=== PATIENT | female | born 1960 | race Caucasian/White ===

== ENCOUNTER → 2016-09-11 | Outpatient (CLI) | payer BC ==
[2016-09-11 10:25] LABS: BASO % 1 % (0-3); EOS % 1 % (0-3); HEMATOCRIT 38.9 % (36.0-47.0); HEMOGLOBIN 13.3 g/dL (12.0-15.5); LYMPH # 0.9 x10^3/uL (1.0-4.8); LYMPH % 25 % (24-48); MEAN CORPUSCULAR HEMOGLOBIN 36 pg (25-35); MEAN CORPUSCULAR HGB CONC 34 g/dL (31-37); MEAN CORPUSCULAR VOLUME 104 fL (79-100); MONO # 0.3 x10^3/uL (0.0-1.1); MONO % 8 % (0-9); NEUT # 2.4 x10^3uL (1.8-7.7); NEUT % 65 % (31-73); PLATELET COUNT 303 x10^3/uL (140-400); RED BLOOD COUNT 3.76 x10^6/uL (3.50-5.40); RED CELL DISTRIBUTION WIDTH 13.8 % (11.5-14.5); WHITE BLOOD COUNT 3.7 x10^3/uL (4.0-11.0)
[2016-09-11 10:38] LABS: ALBUMIN 3.5 g/dL (3.4-5.0); ALBUMIN/GLOBULIN RATIO 0.8 (1.0-1.7); CALCIUM 8.8 mg/dL (8.5-10.1); CREATININE 0.9 mg/dL (0.6-1.0); GFR 64.5; POTASSIUM 4.3 mmol/L (3.5-5.1); TOTAL BILIRUBIN 0.7 mg/dL (0.2-1.0); TOTAL PROTEIN 7.7 g/dL (6.4-8.2)
== END | disposition home or self-care (01) ==
LOC: LAB 08:00
PROVIDERS: ATTEND Internal Medicine Gastroenterology
DX: R19.7 Diarrhea, unspecified (principal); Z79.899 Other long term (current) drug therapy
CPT/HCPCS: 36415; 80053; 85027

== ENCOUNTER → 2017-05-05 | Outpatient (CLI) | payer BC ==
[2017-05-05 11:52] LABS: BASO % 1 % (0-3); EOS # 0.1 x10^3/uL (0.0-0.7); EOS % 2 % (0-3); HEMATOCRIT 43.6 % (36.0-47.0); LYMPH % 30 % (24-48); MEAN CORPUSCULAR HEMOGLOBIN 35 pg (25-35); MEAN CORPUSCULAR HGB CONC 34 g/dL (31-37); MEAN CORPUSCULAR VOLUME 102 fL (79-100); MONO # 0.6 x10^3/uL (0.0-1.1); MONO % 9 % (0-9); NEUT # 3.9 x10^3uL (1.8-7.7); NEUT % 59 % (31-73); PLATELET COUNT 300 x10^3/uL (140-400); RED BLOOD COUNT 4.28 x10^6/uL (3.50-5.40); RED CELL DISTRIBUTION WIDTH 14.4 % (11.5-14.5); WHITE BLOOD COUNT 6.7 x10^3/uL (4.0-11.0)
[2017-05-05 12:16] LABS: ALBUMIN 3.7 g/dL (3.4-5.0); ALBUMIN/GLOBULIN RATIO 0.8 (1.0-1.7); CALCIUM 9.5 mg/dL (8.5-10.1); CREATININE 0.9 mg/dL (0.6-1.0); GFR 64.3; POTASSIUM 4.3 mmol/L (3.5-5.1); TOTAL BILIRUBIN 0.4 mg/dL (0.2-1.0); TOTAL PROTEIN 8.1 g/dL (6.4-8.2)
== END | disposition home or self-care (01) ==
LOC: LAB 11:17
PROVIDERS: ATTEND Internal Medicine Gastroenterology
DX: Z51.81 Encounter for therapeutic drug level monitoring (principal); Z79.899 Other long term (current) drug therapy
CPT/HCPCS: 36415; 80053; 85025

== ENCOUNTER → 2017-07-14 | Outpatient (CLI) | payer BC ==
--- NOTE | 2017-07-14 16:30 | RAD ---
Chest, 2 views, 07/14/2017: History: Cough The heart size and pulmonary vascularity are normal. There are several artifacts on the surface of the patient. No acute infiltrate is seen. There is no evidence of pleural fluid. Mild spurring is present in the spine. IMPRESSION: No acute cardiopulmonary abnormality is detected.
== END | disposition home or self-care (01) ==
LOC: DXRAD 15:24
PROVIDERS: ATTEND Family Medicine
DX: J06.9 Acute upper respiratory infection, unspecified (principal); M46.00 Spinal enthesopathy, site unspecified; R05 Cough
CPT/HCPCS: 71046

== ENCOUNTER → 2017-09-01 | Outpatient (CLI) | payer BC ==
[2017-09-01 10:57] LABS: BASO % 1 % (0-3); EOS % 1 % (0-3); HEMATOCRIT 39.8 % (36.0-47.0); HEMOGLOBIN 13.8 g/dL (12.0-15.5); LYMPH # 0.9 x10^3/uL (1.0-4.8); LYMPH % 19 % (24-48); MEAN CORPUSCULAR HEMOGLOBIN 35 pg (25-35); MEAN CORPUSCULAR HGB CONC 35 g/dL (31-37); MEAN CORPUSCULAR VOLUME 102 fL (79-100); MONO # 0.4 x10^3/uL (0.0-1.1); MONO % 8 % (0-9); NEUT # 3.4 x10^3uL (1.8-7.7); NEUT % 72 % (31-73); PLATELET COUNT 358 x10^3/uL (140-400); RED BLOOD COUNT 3.92 x10^6/uL (3.50-5.40); RED CELL DISTRIBUTION WIDTH 15.4 % (11.5-14.5); WHITE BLOOD COUNT 4.7 x10^3/uL (4.0-11.0)
[2017-09-01 13:21] LABS: ALBUMIN 3.6 g/dL (3.4-5.0); ALBUMIN/GLOBULIN RATIO 0.8 (1.0-1.7); CALCIUM 9.6 mg/dL (8.5-10.1); CREATININE 0.8 mg/dL (0.6-1.0); GFR 73.7; POTASSIUM 4.7 mmol/L (3.5-5.1); TOTAL BILIRUBIN 0.5 mg/dL (0.2-1.0); TOTAL PROTEIN 8.1 g/dL (6.4-8.2)
== END | disposition home or self-care (01) ==
LOC: LAB 10:39
PROVIDERS: ATTEND Internal Medicine Gastroenterology
DX: Z79.899 Other long term (current) drug therapy (principal)
CPT/HCPCS: 36415; 80053; 85025

== ENCOUNTER → 2017-10-29 | Outpatient (CLI) | payer BC ==
[2017-10-29 10:18] LABS: BASO % 1 % (0-3); EOS % 1 % (0-3); HEMATOCRIT 39.4 % (36.0-47.0); HEMOGLOBIN 13.8 g/dL (12.0-15.5); LYMPH % 25 % (24-48); MEAN CORPUSCULAR HEMOGLOBIN 36 pg (25-35); MEAN CORPUSCULAR HGB CONC 35 g/dL (31-37); MEAN CORPUSCULAR VOLUME 102 fL (79-100); MONO # 0.4 x10^3/uL (0.0-1.1); MONO % 10 % (0-9); NEUT # 2.6 x10^3uL (1.8-7.7); NEUT % 63 % (31-73); PLATELET COUNT 313 x10^3/uL (140-400); RED BLOOD COUNT 3.88 x10^6/uL (3.50-5.40); RED CELL DISTRIBUTION WIDTH 14.5 % (11.5-14.5); WHITE BLOOD COUNT 4.1 x10^3/uL (4.0-11.0)
[2017-10-29 10:30] LABS: ALBUMIN 3.4 g/dL (3.4-5.0); ALBUMIN/GLOBULIN RATIO 0.8 (1.0-1.7); CALCIUM 9.2 mg/dL (8.5-10.1); CREATININE 0.9 mg/dL (0.6-1.0); GFR 64.3; POTASSIUM 4.5 mmol/L (3.5-5.1); TOTAL BILIRUBIN 0.7 mg/dL (0.2-1.0); TOTAL PROTEIN 7.7 g/dL (6.4-8.2)
== END | disposition home or self-care (01) ==
LOC: LAB 09:42
PROVIDERS: ATTEND Internal Medicine Gastroenterology
DX: K51.00 Ulcerative (chronic) pancolitis without complications (principal)
CPT/HCPCS: 36415; 80053; 85025

== ENCOUNTER → 2018-09-22 | Outpatient (CLI) | payer BC ==
[2018-09-22 09:09] LABS: BASO % 1 % (0-3); EOS % 1 % (0-3); HEMATOCRIT 39.1 % (36.0-47.0); HEMOGLOBIN 13.2 g/dL (12.0-15.5); LYMPH # 0.7 x10^3/uL (1.0-4.8); LYMPH % 21 % (24-48); MEAN CORPUSCULAR HEMOGLOBIN 35 pg (25-35); MEAN CORPUSCULAR HGB CONC 34 g/dL (31-37); MEAN CORPUSCULAR VOLUME 104 fL (79-100); MONO # 0.4 x10^3/uL (0.0-1.1); MONO % 12 % (0-9); NEUT # 2.2 x10^3uL (1.8-7.7); NEUT % 66 % (31-73); PLATELET COUNT 346 x10^3/uL (140-400); RED BLOOD COUNT 3.78 x10^6/uL (3.50-5.40); RED CELL DISTRIBUTION WIDTH 14.5 % (11.5-14.5); WHITE BLOOD COUNT 3.3 x10^3/uL (4.0-11.0)
[2018-09-22 09:24] LABS: ALBUMIN 3.4 g/dL (3.4-5.0); ALBUMIN/GLOBULIN RATIO 0.8 (1.0-1.7); CREATININE 0.8 mg/dL (0.6-1.0); GFR 73.4; POTASSIUM 4.2 mmol/L (3.5-5.1); TOTAL BILIRUBIN 0.7 mg/dL (0.2-1.0); TOTAL PROTEIN 7.8 g/dL (6.4-8.2)
== END | disposition home or self-care (01) ==
LOC: LAB 08:27
PROVIDERS: ATTEND Internal Medicine Gastroenterology
DX: K51.00 Ulcerative (chronic) pancolitis without complications (principal)
CPT/HCPCS: 36415; 80053; 85025

== ENCOUNTER → 2018-11-23 | Outpatient (CLI) | payer BC ==
[2018-11-23 13:37] LABS: BASO % 1 % (0-3); EOS % 1 % (0-3); HEMATOCRIT 38.6 % (36.0-47.0); HEMOGLOBIN 13.4 g/dL (12.0-15.5); LYMPH # 1.2 x10^3/uL (1.0-4.8); LYMPH % 26 % (24-48); MEAN CORPUSCULAR HEMOGLOBIN 36 pg (25-35); MEAN CORPUSCULAR HGB CONC 35 g/dL (31-37); MEAN CORPUSCULAR VOLUME 103 fL (79-100); MONO # 0.3 x10^3/uL (0.0-1.1); MONO % 7 % (0-9); NEUT # 3.1 x10^3uL (1.8-7.7); NEUT % 66 % (31-73); PLATELET COUNT 306 x10^3/uL (140-400); RED BLOOD COUNT 3.77 x10^6/uL (3.50-5.40); RED CELL DISTRIBUTION WIDTH 14.2 % (11.5-14.5); WHITE BLOOD COUNT 4.7 x10^3/uL (4.0-11.0)
[2018-11-23 13:49] LABS: ALBUMIN 3.5 g/dL (3.4-5.0); ALBUMIN/GLOBULIN RATIO 0.9 (1.0-1.7); CALCIUM 9.2 mg/dL (8.5-10.1); CREATININE 0.9 mg/dL (0.6-1.0); GFR 64.1; POTASSIUM 4.2 mmol/L (3.5-5.1); TOTAL BILIRUBIN 0.6 mg/dL (0.2-1.0); TOTAL PROTEIN 7.5 g/dL (6.4-8.2)
== END | disposition home or self-care (01) ==
LOC: LAB 13:11
PROVIDERS: ATTEND Internal Medicine Gastroenterology
DX: K51.00 Ulcerative (chronic) pancolitis without complications (principal)
CPT/HCPCS: 36415; 80053; 85025

== ENCOUNTER → 2021-02-13 | Outpatient (CLI) | payer BC ==
--- NOTE | 2021-02-13 15:53 | RAD ---
MG BILAT SCREEN+CHANCE 02/13/2021 10:26 AM INDICATION: Asymptomatic screening mammogram. COMPARISON: None available TECHNIQUE: 3D tomosynthesis was performed in CC and MLO projections. 2D views were obtained from the 3D data. CAD was utilized as needed. FINDINGS: Breast density: Category C: The breats are heterogeneously dense, which may obscure small masses. Right breast: There are no suspicious microcalcifications, masses or areas of architectural distortio n. Left breast: There is an indistinct, microlobulated high density mass in the upper outer left breast, 1 to 2 cm from the nipple. Targeted sonographic evaluation is recommended for further evaluation. IMPRESSION: 1. Incomplete left mammogram. Additional imaging is recommended as detailed above. 2. Negative right mammogram. BI-RADS category: 0; Incomplete Recommendations: Recommend additional imaging for which the patient will need to be called back. Electronically signed by: Damaris Nam MD (02/13/2021 3:51 PM) [id number]
--- NOTE | 2021-02-13 18:02 | RAD ---
DEXA scan 02/13/2021 Clinical History: Postmenopausal female. Risk factors for osteoporosis. Technique: DEXA of the lumbar spine and the right hip was performed. FINDINGS: Comparison study is dated 11/14/2015. The bone mineral density of the lumbar spine is 1.251 g/cm2 which corresponds with a T-score of 0.6 . This is within normal limits. The mean bone mineral density of the lumbar spine is decreased since t he previous examination where it measured 1.308 g/sq cm. The mean bone mineral density of the right hip is 1.302 g/sq cm. This corresponds to a T score of 0.6 . This is within normal limits. The mean bone mineral density of the right hip is decreased since pre vious examination where it measured 1.091 g/sq cm By World [employer] on Osteoporosis criteria, a T score of 0 to-1 SD is considered to be within normal limits. A T score of -1 to -2.5 SD is considered osteopenia. A T score less than -2.5 SD is conside red osteoporosis Impression: The patient's mean bone mineral densities are within normal limits. They have decreased s nancy the previous examination, however. Electronically signed by: Kit Centeno MD (02/13/2021 5:59 PM) [id number]
== END ==
LOC: MAMMO 09:58
PROVIDERS: ATTEND Specialist
DX: Z12.31 Encounter for screening mammogram for malignant neoplasm of breast (principal); N63.21 Unspecified lump in the left breast, upper outer quadrant; Z79.899 Other long term (current) drug therapy
CPT/HCPCS: 77063; 77067; 77080

== ENCOUNTER → 2021-03-19 | Outpatient (CLI) | payer BC ==
--- NOTE | 2021-03-19 13:46 | RAD ---
EXAM: Left breast sonogram. HISTORY: 61-year-old female presents for evaluation of nodularity within the left breast demonstrated on a screening mammogram dated 02/13/2021. TECHNIQUE: Sonographic imaging of the left breast targeted to the site of mammographic concern was pe rformed. COMPARISON: 02/13/2021. FINDINGS: There is a circumscribed hypoechoic lesion at the 12:00 position 2 cm from the nipple measu ring 6 mm, likely corresponding with the finding of concern on the recent screening mammogram. The im aging appearance favors a benign cyst with internal debris. There is slight surrounding ductal ectasi a. There is also a 3 mm cyst with suspected internal debris at the 2:00 position 1 cm from the nipple . IMPRESSION: 1. 6 mm cyst at the 12:00 position 2 cm from the nipple and 3 mm cyst at the 2:00 position 1 cm from the nipple, the former which likely corresponds with the mammographic finding of concern. 2. Mild ductal ectasia within the anterior left breast. 3. No suspicious sonographic finding. 4. BI-RADS Category 2: Benign finding(s). Annual mammography is recommended. Electronically signed by: Yasmin Staley MD (03/19/2021 1:44 PM) [id number]
== END ==
LOC: US 13:10
PROVIDERS: ATTEND Specialist
DX: N60.02 Solitary cyst of left breast (principal); N64.89 Other specified disorders of breast
CPT/HCPCS: 76641

== ENCOUNTER → 2021-05-11 | Day surgery (SDC) | payer BC ==
[~2021-05-11] MED LIST: ACETAMINOPHEN 325 MG TABLET PO PRN; ALBUTEROL SULFATE 2.5 MG/3 ML NEBU. NEB PRN; ATROPINE 0.5 MG/5 ML DISP.SYRIN. IV PRN; B12 IM; CA C1TAB58 PO; IV RINGERS SOLUTION,LACTATED 1,000 ML IV SCH; LIDOCAINE 1% PF 2 ML VIAL. ONE; MERC50TA PO; MESA800T9 PO; METO50TA29 PO; MIDAZOLAM HCL PF 2 MG/2 ML VIAL. IV PRN; OMEG100021 PO; ONDANSETRON PF 4 MG/2 ML VIAL. IV PRN; PHENOL ORAL SPRAY 177ML BOTTLE. MM PRN; POTA-121 PO; PROPOFOL 10,000 MCG/ML (20ML) VIAL IV ONE; [UNRECOGNIZED DRUG - OTHER]; folic acid PO; iron PO; lutein; vitamin E PO
[2021-05-11 13:31] VITALS: BP 112/84
--- NOTE | 2021-05-15 17:06 | PATHOLOGY ---
[facility] Accession Number: [id number] . 01 Material submitted: . PART A: colon - RIGHT COLON BXS. Modifiers: right PART B: colon - TRANSVERSE COLON BX. Modifiers: transverse PART C: colon - DESCENDING COLON BX. Modifiers: descending PART D: sigmoid colon - SIGMOID BX PART E: rectum - RECTAL BX . 01 Clinical history: . COLITIS COLONOSCOPY . 02 Diagnosis: A. Colon biopsies, right colon: - Segments of colonic mucosa showing no evidence of an active chronic colitis, dysplasia, or malignancy. . B. Colon biopsies, transverse colon: - Segments of colonic mucosa showing no evidence of an active chronic colitis, dysplasia, or malignancy. . C. Colonic mucosa, descending colon biopsy: - Segments of colonic mucosa showing no evidence of an active chronic colitis, dysplasia, or malignancy. . D. Colon biopsies, sigmoid colon: - Segments of colonic mucosa showing no evidence of an active chronic colitis, dysplasia, or malignancy. . E. Colorectal biopsies, rectum: - Segments of rectal mucosa showing no evidence of an active chronic colitis, dysplasia, or malignancy. (JPM:beba; 05/15/2021) [facility] 05/15/2021 1604 Local . 02 Comment: Sections of the colon and rectal biopsies reveal segments of colonic and rectal mucosa, some of which contain focally hyperplastic mucosal-associated lymphoid aggregates. There is no evidence of an active chronic destructive colitis. There is no evidence of dysplasia or malignancy. (JPM:beba; 05/15/2021) . 02 Electronically signed: . Triston Cardoso MD, Pathologist NPI- [id number] . 01 Gross description: . A. The specimen is received in formalin, labeled "Tania Cain, right colon BX". Received are 3 segments of pale xie tissue ranging in size from 0.2-0.4 cm in maximum dimensions. The specimen is entirely submitted in cassette A1. . B. The specimen is received in formalin, labeled "Ant, Tania, transverse colon BX". Received is a single segment of pale xie tissue measuring 0.3 cm in maximum dimensions. The specimen is entirely submitted in cassette B1. . C. The specimen is received in formalin, labeled "Ant, Tania, descending colon BX". Received are 4 segments of pale xie tissue ranging in size from 0.3-0.5 cm in maximum dimensions. The specimen is entirely submitted in cassette C1. . D. The specimen is received in formalin, labeled "Ant, Tania, sigmoid colon BX". Received are 5 segments of pale xie tissue ranging in size from 0.3-0.5 cm in maximum dimensions. The specimen is entirely submitted in cassette D1. . E. The specimen is received in formalin, labeled "Ant, Tania, rectum BX". Received are 4 segments of pale xie tissue ranging in size from 0.3-0.4 cm in maximum dimensions. The specimen is entirely submitted in cassette E1. ([facility]; 05/14/2021) NRI/NRI 05/14/2021 1801 Local . 02 Pathologist provided ICD-10: K52.9 . 02 CPT . 796065, [id number], 717762, [id number], [id number] Specimen Comment: A courtesy copy of this report has been sent to [phone], [phone] Specimen Comment: [id number] Specimen Comment: Report sent to / DR BOWEN Performed at: 01 [facility] [address], [place] [id number] MD Magan Rivera MD Phone: [phone] Performed at: 02 [facility] [address], [place] [id number] MD Triston Cardoso MD Phone: [phone]
== END | disposition home or self-care (01) ==
LOC: SURG 08:09
PROVIDERS: ATTEND Internal Medicine Gastroenterology
DX: K51.00 Ulcerative (chronic) pancolitis without complications (principal); K64.8 Other hemorrhoids; K57.30 Diverticulosis of large intestine without perforation or abscess without bleeding; K63.89 Other specified diseases of intestine; I10 Essential (primary) hypertension; Z79.899 Other long term (current) drug therapy; Z98.890 Other specified postprocedural states
CPT/HCPCS: 36415; 45380; 84132; J2704; J7120